=== PATIENT | female | born 1960 | race Caucasian/White ===

== ENCOUNTER 2022-01-09 17:36 | Observation (INO) | payer BC, SELFPAY ==
[2022-01-09] VITALS (27 sets, daily range): BP systolic 114–138; BP diastolic 63–76; PULSE 68–93; RESP 11–27; TEMP 36.2; O2SAT 98–100
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
--- NOTE | ~2022-01-09 | XR_ITS ---
EXAMINATION: XR small bowel follow through DATE: 01/13/2022 10:37 INDICATION: Iron deficiency anemia TECHNIQUE: Quarter Inspector radiograph(s) of the abdomen was/were obtained. Oral contrast was administered, and sequential radiographs of the abdomen were obtained until oral contrast was noted to be in the proxi mal colon. Spot fluoroscopic images of the small bowel were obtained. Fluoroscopy exposure time was m inutes. A total of 8 fluoroscopic images and 5 overhead radiographs were obtained. COMPARISON: CT dated 01/09/2022 FINDINGS: Transit time from the stomach to proximal colon was approximately 1 hour. There is normal caliber and mucosal fold pattern throughout the small bowel. Terminal ileum is unable to be definitively disting uished from the adjacent loops of small bowel, all of which appear normal. No tethering observed upo n the small bowel with real-time fluoroscopy. There is absence of contrast opacified small bowel or c olonic gas in significant portion of the pelvis which based upon CT imaging appears to reflect mass e ffect from the enlarged and fibroid uterus. IMPRESSION: 1. Normal small bowel follow-through aside from exclusion of bowel from significant portion of the pe lvis resulting from mass effect from the enlarged and fibroid uterus which is better appreciated on p rior CT. Reviewed, dictated and finalized at location A. ESSOR OF FLORICULTURE IMPRESSION: 1. Normal small bowel follow-through aside from exclusion of bowel from signifi cant portion of the pelvis resulting from mass effect from the enlarged and fib roid uterus which is better appreciated on prior CT.
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
[2022-01-09 20:59] LABS: Basophils Absolute Auto 0.1 K/mm3 (0.0-0.1); Basophils Percent Auto 0.8 % (0.2-1.2); Eosinophils Absolute Auto 0.1 K/mm3 (0-0.3); Eosinophils Percent Auto 0.6 % (0-4.4); Hematocrit 24.5 % (37.0-47.0); Immature Granulocyte Absolute 0.03 K/mm3 (0.00-0.031); Immature Granulocyte Percent A 0.3 % (0-0.5); Lymphocytes Absolute Auto 1.72 K/mm3 (0.9-3.2); Lymphocytes Percent Auto 19.7 % (18.3-44.2); Mean Corpuscular HGB Conc 26.9 g/dl (32-36); Mean Corpuscular Hemoglobin 15.6 pg (26-34); Mean Corpuscular Volume 58.1 fl (80-100); Mean Platelet Volume 8.9 fl (7.4-10.4); Monocytes Absolute Auto 0.8 K/mm3 (0.1-0.6); Monocytes Percent Auto 9.3 % (2.6-8.5); Neutrophils Absolute Auto 6.1 K/mm3 (1.3-6.7); Neutrophils Percent Auto 69.3 % (45.5-73.1); Platelet Count Result 401 k/mm3 (150-375); Red Blood Count 4.22 M/mm3 (4.2-5.4); Red Cell Distribution Width 23.9 % (11.5-14.5); White Blood Count 8.7 K/mm3 (4.5-10.0)
[2022-01-09 21:12] LABS: Alanine Aminotransferase 17 U/L (6-35); Alkaline Phosphatase 50 U/L (38-126); Anion Gap 6 mmol/L (8-16); Aspartate Amino Transferase 25 U/L (14-36); Bilirubin,Total 0.3 mg/dL (0.2-1.3); Blood Urea Nitrogen 17 mg/dL (7-17); Calcium 8.4 mg/dL (8.4-10.2); Carbon Dioxide 23 mmol/L (22-30); Chloride 106 mmol/L (98-107); Estimated CRCL calculation 62 ml/min; Estimated Glomerular Filt Rate > 60; Glucose 96 mg/dL (65-110); Potassium 3.5 mmol/L (3.4-5.0); Sodium 135 mmol/L (137-145)
[2022-01-09 21:13] LABS: INR 1.1; Prothrombin Time 13.9 Seconds (11.1-14.7)
[2022-01-09 21:14] LABS: Partial Thromboplastin Time 27.5 SECONDS (22.3-36.8)
[2022-01-09 21:15] LABS: Hemoglobin 6.6 g/dL (12.0-15.0)
[2022-01-09 21:24] LABS: Troponin I 0.012 ng/mL (0.000-0.034)
[2022-01-09 21:28] LABS: Appearance Urine Clear (Clear); Bilirubin Urine Negative (Negative); Blood Urine Trace-intact (Negative); Color Urine Yellow (Yellow); Glucose Urine UA Negative (Negative); Ketones Urine Trace mg/dL (Negative); Leukocyte Esterase Ur Negative LEU/UL (Negative); Nitrate Urine Negative (Negative); Protein Urine Negative (Negative); Specific Grav Ur 1.025 (1.001-1.035); Urobilinogen Urine 0.2 mg/dL (<2.0)
[2022-01-09 21:28] LABS: Hypochromasia 2+ (NORMAL); Platelet Estimate Increased (Adequate)
[2022-01-09 21:29] LABS: Anisocytosis 2+ (NORMAL); Schistocytes None Seen (NORMAL)
[2022-01-09 21:31] LABS: Bacteria Urine Trace /hpf; Mucus Urine Rare /lpf; Squamous Epithelial Cell Urine Occasional /hpf (Few); WBC Urine 0-3 /hpf
[2022-01-09 21:36] LABS: Add Urine Microscopic? YES
[2022-01-09 22:05] LABS: Hemoglobin 6.2 g/dL (12.0-15.0)
[2022-01-10] VITALS (34 sets, daily range): BP systolic 102–139; BP diastolic 49–79; PULSE 62–78; RESP 12–76; TEMP 36.1–36.7; O2SAT 98–100; BMI 23.3
[2022-01-10 01:36] LABS: SARS-CoV-2 RNA PCR Negative
[2022-01-10 03:21] LABS: Hematocrit 24.4 % (37.0-47.0)
[2022-01-10 03:44] LABS: Hemoglobin 6.6 g/dL (12.0-15.0)
[2022-01-10 04:40] LABS: Iron 15 ug/dL (37-170)
[2022-01-10 04:49] LABS: Percent Iron Saturation 3 % (20-50)
[2022-01-10] MEDS: MORPHINE SULFATE (*CRX) 4 MG/ML INJ IV PUSH (07:55)
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
[2022-01-10 09:34] LABS: Hematocrit 27.8 % (37.0-47.0); Hemoglobin 7.7 g/dL (12.0-15.0)
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
[2022-01-10 15:02] LABS: Hematocrit 28.3 % (37.0-47.0); Hemoglobin 7.8 g/dL (12.0-15.0)
[2022-01-10] MEDS: IRON SUCROSE COMPLEX 200 MG in SODIUM CHLORIDE 0.9% IV 50 ML 120 MG IVPB (15:06)
[2022-01-10] MEDS: HYDROcodone/acetaminophen (*CRX) 5-325 MG TABLET 1 TAB PO ×2 (15:10→21:29)
[2022-01-10 21:54] LABS: Hematocrit 28.6 % (37.0-47.0); Hemoglobin 7.8 g/dL (12.0-15.0)
[2022-01-10 22:04] LABS: Iron 282 ug/dL (37-170)
[2022-01-10 22:13] LABS: Percent Iron Saturation 67 % (20-50)
[2022-01-11] VITALS (7 sets, daily range): BP systolic 100–129; BP diastolic 53–69; PULSE 62–71; RESP 16–18; TEMP 36.4–36.6; O2SAT 99–100
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
[2022-01-11 07:56] LABS: Basophils Absolute Auto 0.1 K/mm3 (0.0-0.1); Eosinophils Absolute Auto 0.1 K/mm3 (0-0.3); Eosinophils Percent Auto 2.4 % (0-4.4); Hematocrit 29.1 % (37.0-47.0); Hemoglobin 7.7 g/dL (12.0-15.0); Immature Granulocyte Absolute 0.02 K/mm3 (0.00-0.031); Immature Granulocyte Percent A 0.3 % (0-0.5); Immature Platelet Fraction Pct 3.6 % (0.9-11.2); Lymphocytes Absolute Auto 1.59 K/mm3 (0.9-3.2); Lymphocytes Percent Auto 27.2 % (18.3-44.2); Mean Corpuscular HGB Conc 26.5 g/dl (32-36); Mean Corpuscular Volume 60.4 fl (80-100); Mean Platelet Volume 9.2 fl (7.4-10.4); Monocytes Absolute Auto 0.7 K/mm3 (0.1-0.6); Monocytes Percent Auto 11.8 % (2.6-8.5); Neutrophils Absolute Auto 3.4 K/mm3 (1.3-6.7); Neutrophils Percent Auto 57.3 % (45.5-73.1); Platelet Count Result 357 k/mm3 (150-375); Red Blood Count 4.82 M/mm3 (4.2-5.4); Red Cell Distribution Width 26.2 % (11.5-14.5); White Blood Count 5.9 K/mm3 (4.5-10.0)
[2022-01-11 08:17] LABS: Anion Gap 4 mmol/L (8-16); Blood Urea Nitrogen 8 mg/dL (7-17); Calcium 8.3 mg/dL (8.4-10.2); Carbon Dioxide 25 mmol/L (22-30); Chloride 105 mmol/L (98-107); Estimated CRCL calculation 62 ml/min; Estimated Glomerular Filt Rate > 60; Glucose 82 mg/dL (65-110); Potassium 3.6 mmol/L (3.4-5.0); Sodium 134 mmol/L (137-145)
[2022-01-11 09:14] LABS: Platelet Estimate Adequate (Adequate)
[2022-01-11 09:15] LABS: Anisocytosis 2+ (NORMAL); Microcytosis 1+ (NORMAL); Ovalocytes 2+ (NORMAL); Target Cells 1+ (NORMAL); Tear Drop Cells 1+ (NORMAL)
[2022-01-11 09:16] LABS: Crenated RBC 1+ (NORMAL); Hypochromasia 1+ (NORMAL); Schistocytes None Seen (NORMAL)
[2022-01-11] MEDS: HYDROcodone/acetaminophen (*CRX) 5-325 MG TABLET 1 TAB PO ×2 (10:48→20:49)
[2022-01-11] MEDS: MULTIVITS W-FE,MIN CHEWABLE TABLET 1 TABLET PO (10:48)
[2022-01-11] MEDS: PANTOPRAZOLE SODIUM IV 40 MG VIAL IV PUSH (10:49)
[2022-01-11] MEDS: PEG (High)/E-LYTE SOLN 4,000 ML BTL 4000 ML PO (12:36)
[2022-01-11] MEDS: ONDANSETRON INJ 4 MG/2 ML VIAL IV PUSH (12:42)
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
--- NOTE | 2022-01-11 16:34 | ECG_ITS ---
Measurements Intervals [place] Rate: 66 P: 68 PA: 174 QRS: 46 QRSD: 83 T: 61 QT: 415 QTc: 435 Interpretive Statements SINUS RHYTHM NONSPECIFIC T-WAVE ABNORMALITY BORDERLINE ECG NO PREVIOUS ECG AVAILABLE FOR COMPARISON Electronically Signed On 01-11-2022 17:43:11 REQUISITION APPROVER by Jefferson Bright M.D.
[2022-01-11 18:15] LABS: IFOB Positive Control Positive; Immunochemical Fecal Occult Bl Negative (N)
[2022-01-11] MEDS: PROMETHAZINE HCL 25 MG TABLET PO (18:46)
[2022-01-12] VITALS (9 sets, daily range): BP systolic 103–137; BP diastolic 54–81; PULSE 66–76; RESP 14–19; TEMP 36.2–36.8; O2SAT 98–100
[2022-01-12 07:10] LABS: Basophils Absolute Auto 0.1 K/mm3 (0.0-0.1); Basophils Percent Auto 1.3 % (0.2-1.2); Eosinophils Absolute Auto 0.2 K/mm3 (0-0.3); Eosinophils Percent Auto 2.8 % (0-4.4); Hematocrit 29.5 % (37.0-47.0); Hemoglobin 7.9 g/dL (12.0-15.0); Immature Granulocyte Absolute 0.01 K/mm3 (0.00-0.031); Immature Granulocyte Percent A 0.2 % (0-0.5); Immature Platelet Fraction Pct 2.7 % (0.9-11.2); Lymphocytes Absolute Auto 1.67 K/mm3 (0.9-3.2); Lymphocytes Percent Auto 31.2 % (18.3-44.2); Mean Corpuscular HGB Conc 26.8 g/dl (32-36); Mean Corpuscular Hemoglobin 16.7 pg (26-34); Mean Corpuscular Volume 62.5 fl (80-100); Mean Platelet Volume 9.5 fl (7.4-10.4); Monocytes Absolute Auto 0.7 K/mm3 (0.1-0.6); Monocytes Percent Auto 13.2 % (2.6-8.5); Neutrophils Absolute Auto 2.8 K/mm3 (1.3-6.7); Neutrophils Percent Auto 51.3 % (45.5-73.1); Platelet Count Result 388 k/mm3 (150-375); Red Blood Count 4.72 M/mm3 (4.2-5.4); Red Cell Distribution Width 26.2 % (11.5-14.5); White Blood Count 5.4 K/mm3 (4.5-10.0)
[2022-01-12 07:20] LABS: Albumin Level 3.7 g/dL (3.5-5.1); Anion Gap 5 mmol/L (8-16); Blood Urea Nitrogen 5 mg/dL (7-17); Calcium 8.1 mg/dL (8.4-10.2); Carbon Dioxide 29 mmol/L (22-30); Chloride 104 mmol/L (98-107); Estimated CRCL calculation 62 ml/min; Estimated Glomerular Filt Rate > 60; Glucose 85 mg/dL (65-110); Magnesium 2.2 mg/dL (1.6-2.3); Phosphorus 2.5 mg/dL (2.5-4.5); Potassium 3.2 mmol/L (3.4-5.0); Sodium 138 mmol/L (137-145)
[2022-01-12] MEDS: PANTOPRAZOLE SODIUM IV 40 MG VIAL IV PUSH (08:41)
[2022-01-12 09:10] LABS: Anisocytosis 1+ (NORMAL); Hypochromasia 3+ (NORMAL); Ovalocytes 1+ (NORMAL); Poikilocytosis 2+ (NORMAL)
[2022-01-12 09:11] LABS: Schistocytes 1+ (NORMAL); Target Cells 1+ (NORMAL)
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
[2022-01-12] MEDS: LACTATED RINGERS 1,000 ML 150 ML IV CONT (14:34)
--- NOTE | 2022-01-12 14:51 | WPDANESEPPF ---
Anes - Initial Pre Proc Eval Procedure: Operation Date: 01/12/22 15:30 Proposed Procedures p Esophagogastroduodenoscopy & Colonoscopy - Naresh Zhao MD Date/Time: 01/12/22 14:51 Surgeon: Adali Mckinney MD Pre Op Diagnosis: Anemia Patient Data Age: 61 Gender: F Height: 1.6 m Weight: 59.8 kg Last Vital Signs Temp 97.4 F L 01/12/22 14:29 Pulse 72 01/12/22 14:29 Resp 18 01/12/22 14:29 BP 137/81 01/12/22 14:29 Pulse Ox 100 01/12/22 14:29 O2 Del Method Room Air 01/12/22 14:29 Allergies Allergy/AdvReac Type Severity Reaction Status Date / Time No Known Allergies Allergy Verified 01/10/22 08:35 Home Medications Medication Instructions Recorded Confirmed Type multivitamin 1 tablet PO DAILY 01/10/22 01/10/22 History Laboratory Tests 01/11/22 01/12/22 01/12/22 17:05 06:21 06:21 WBC 5.4 K/mm3 K/mm3 (4.5-10.0) RBC 4.72 M/mm3 M/mm3 (4.2-5.4) Hgb 7.9 g/dL L g/dL (12.0-15.0) Hct 29.5 % L % (37.0-47.0) MCV 62.5 fl L fl (80-100) MCH 16.7 pg L pg (26-34) MCHC 26.8 g/dl L g/dl (32-36) RDW 26.2 % H % (11.5-14.5) Plt Count 388 k/mm3 H k/mm3 (150-375) MPV 9.5 fl fl (7.4-10.4) Immature Gran % (Auto) 0.2 % % (0-0.5) Neut % (Auto) 51.3 % % (45.5-73.1) Lymph % (Auto) 31.2 % % (18.3-44.2) Mclennan % (Auto) 13.2 % H % (2.6-8.5) Eos % (Auto) 2.8 % % (0-4.4) Baso % (Auto) 1.3 % H % (0.2-1.2) Lymph # (Auto) 1.67 K/mm3 K/mm3 (0.9-3.2) Mclennan # (Auto) 0.7 K/mm3 H K/mm3 (0.1-0.6) Eos # (Auto) 0.2 K/mm3 K/mm3 (0-0.3) Baso # (Auto) 0.1 K/mm3 K/mm3 (0.0-0.1) Abs Immat Gran (auto) 0.01 K/mm3 K/mm3 (0.00-0.031) Absolute Neuts (auto) 2.8 K/mm3 K/mm3 (1.3-6.7) Absolute Nucleated RBC 0.0 K/mm3 K/mm3 (0.0-0.012) Nucleated RBC % 0.0 % % (0.0-0.2) Platelet Estimate Slightly increased (Adequate) % Immature Plt Fraction 2.7 % % (0.9-11.2) Hypochromasia 3+ (NORMAL) Poikilocytosis 2+ (NORMAL) Anisocytosis 1+ (NORMAL) Target Cells 1+ (NORMAL) Ovalocytes 1+ (NORMAL) Schistocytes 1+ (NORMAL) Sodium 138 mmol/L mmol/L (137-145) Potassium 3.2 mmol/L L mmol/L (3.4-5.0) Chloride 104 mmol/L mmol/L (98-107) Carbon Dioxide 29 mmol/L mmol/L (22-30) Anion Gap 5 mmol/L L mmol/L (8-16) BUN 5 mg/dL L mg/dL (7-17) Creatinine 0.70 mg/dL mg/dL (0.7-1.0) Estim Creat Clear Calc 62 ml/min ml/min Estimated GFR > 60 (59 - ) Glucose 85 mg/dL mg/dL (65-110) Calcium 8.1 mg/dL L mg/dL (8.4-10.2) Phosphorus 2.5 mg/dL mg/dL (2.5-4.5) Magnesium 2.2 mg/dL mg/dL (1.6-2.3) Albumin 3.7 g/dL g/dL (3.5-5.1) TSH (Reflex) Stl Occult Blood (IFOB) Negative (N) 01/12/22 06:21 WBC RBC Hgb Hct MCV MCH MCHC RDW Plt Count MPV Immature Gran % (Auto) Neut % (Auto) Lymph % (Auto) Mclennan % (Auto) Eos % (Auto) Baso % (Auto) Lymph # (Auto) Mclennan # (Auto) Eos # (Auto) Baso # (Auto) Abs Immat Gran (auto) Absolute Neuts (auto) Absolute Nucleated RBC Nucleated RBC % Platelet Estimate % Immature Plt Fraction Hypochromasia Poikilocytosis Anisocytosis Target Cells Ovalocytes Schistocytes Sodium Potassium Chloride Carbon Dioxide Anion Gap BUN Creatinine Estim Creat Clear Calc Estimated GFR Glucose Calcium Phosphorus
--- NOTE | 2022-01-12 15:58 | SUR.OPER ---
EGD completed at 1553, colonoscopy started at 1559
[2022-01-12] MEDS: HYDROcodone/acetaminophen (*CRX) 5-325 MG TABLET 1 TAB PO (17:04)
[2022-01-12] MEDS: FERROUS SULFATE 324 MG TABLET PO (17:08)
--- NOTE | 2022-01-13 | ECHO_ITS ---
Patient Info Name: Mikaela Romo Age: 61 years : 1960 Gender: Female Ht: 63 in Wt: 131 lbs BSA: 1.63 m2 HR: 76 bpm BP: 124 / 64 mmHg Heart Rhythm: Sinus Rhythm Technical Quality: Good Exam Date: 01/13/2022 1:11 PM Exam Location: [facility] Pulmonary Exam Room: 306 Patient Status: Inpatient Admit Date: 01/10/2022 Staff Ordering Physician: Rojas García MD Slitter Cut Off Operator: Yanci Diop RDCS Attending Provider: Adali Mckinney MD Exam Type: CA echo doppler color flow Study Info Indications - CARDIAC PAUSE Complete two-dimensional, color flow and Doppler transthoracic echocardiogram is performed. Summary 1. Complete two-dimensional, color flow and Doppler transthoracic echocardiogram is performed. 2. Normal left ventricular size thickness and contractility. 3. Grade 1 diastolic noncompliance. 4. Otherwise unremarkable echocardiogram. 5. Compared with August of 2020 there are no changes. Left Ventricle Left ventricular chamber dimension is normal. Left ventricular systolic function is normal, estimated at 65-70%. The left ventricular diastolic function is grade I diastolic dysfunction. Right Ventricle Right ventricular chamber dimension is normal. Left Atria Left atrial chamber dimension is normal. Right Atria Right atrial chamber dimension is normal. Aortic Valve The aortic valve is normal. Pulmonic Valve The pulmonic valve is normal. Mitral Valve The mitral valve has normal leaflets. Tricuspid Valve The tricuspid valve leaflets are normal. Pericardium/Pleural The pericardium appears normal. Aorta The aortic root size at the sinus of Valsalva is normal. Left Ventricular Outflow Tract Name Value Normal LVOT 2D LVOT Diameter 2.0 cm LVOT Doppler LVOT Peak Gradient 4 mmHg LVOT Mean Gradient 2 mmHg LVOT VTI 19 cm LVOT VTI/AV VTI Ratio 0.9 LVOT Stroke Volume 59 ml LVOT CO 12.7 l/min LVOT CI 7.8 l/min/m2 Pulmonic Valve Name Value Normal PV Doppler PV Peak Gradient 3 mmHg Mitral Valve Name Value Normal MV Doppler MV Decel Karnes 225 cm/s2 MV PHT 85 ms MV Area (PHT) 2.6 cm2 4.0-5.0 MV Diastolic Function MV E Peak Velocity 66 cm/s
[2022-01-13 06:29] VITALS: BP 124/64; PULSE 68; RESP 16; TEMP 37.1; O2SAT 100
[2022-01-13 07:20] LABS: Hematocrit 30.7 % (37.0-47.0); Hemoglobin 8.3 g/dL (12.0-15.0); Immature Platelet Fraction Pct 3.4 % (0.9-11.2); Mean Corpuscular Volume 62.8 fl (80-100); Mean Platelet Volume 8.8 fl (7.4-10.4); Platelet Count Result 379 k/mm3 (150-375); Red Blood Count 4.89 M/mm3 (4.2-5.4); Red Cell Distribution Width 27.2 % (11.5-14.5)
[2022-01-13 07:26] LABS: Anion Gap 3 mmol/L (8-16); Blood Urea Nitrogen 7 mg/dL (7-17); Carbon Dioxide 28 mmol/L (22-30); Chloride 105 mmol/L (98-107); Estimated CRCL calculation 71 ml/min; Estimated Glomerular Filt Rate > 60; Glucose 89 mg/dL (65-110); Potassium 3.7 mmol/L (3.4-5.0); Sodium 136 mmol/L (137-145)
--- NOTE | 2022-01-13 07:59 | WPDGIPROGNO ---
Progress Note: A&P Assessment and Plan (1) VARSHA (iron deficiency anemia): Code(s): D50.9 - Iron deficiency anemia, unspecified Status: Acute Assessment and Plan: Iron deficiency anemia noted on presentation. She EGD unremarkable colonoscopy with hemorrhoid unlikely to contribute to anemia. Consider small-bowel follow-through to complete GI workup. This can be done as an outpatient. Consider non GI sources for anemia such as menstrual bleeding from her fibroids. Subjective Date/time seen: 01/13/22 07:59 Patient alert comfortable. No obvious source for iron deficiency anemia by endoscopy yesterday. Patient's stools have been Hemoccult negative. Consider small-bowel follow-through to complete GI evaluation. Review of Systems Review of Systems: Review of systems noncontributory. Exam Narrative: On physical exam patient is alert comfortable at rest anicteric. Lungs are clear. Heart without murmur. Abdomen bowel sounds present soft nontender no organomegaly. Objective Data Vital Signs Vital Signs: Vital Signs - 24 hr 01/12/22 08:00 01/12/22 13:46 01/12/22 14:29 Temperature 97.2 F L 97.4 F L Pulse Rate 66 72 Respiratory Rate 18 18 Blood Pressure 121/61 137/81 Pulse Oximetry 100 100 Oxygen Delivery Room Air Room Air 01/12/22 16:14 01/12/22 16:24 01/12/22 16:34 Temperature Pulse Rate 69 75 76 Respiratory Rate 16 14 19 Blood Pressure 103/54 L 113/66 125/67 Pulse Oximetry 100 100 100 Oxygen Delivery Room Air Room Air Room Air 01/12/22 08:00 01/12/22 12:00 01/12/22 22:29 Temperature 97.5 F L Pulse Rate 69 70 70 Respiratory Rate 16 Blood Pressure 106/62 Pulse Oximetry 99 Oxygen Delivery 01/13/22 06:29 Temperature 98.7 F Pulse Rate 68 Respiratory Rate 16 Blood Pressure 124/64 Pulse Oximetry 100 Oxygen Delivery Intake/Output Intake/Output: Intake & Output 01/10/22 01/11/22 01/12/22 01/13/22 23:59 23:59 23:59 23:59 Intake Total 510 300 300 Output Total 450 500 Balance 60 -200 300 Meds/Results Medications: Active Medications Generic Name Dose Route Start Last Admin Trade Name Freq PRN Reason Stop Dose Admin Hydrocodone Bitart/Acetaminophen 1 tab 12/06/22 14:52 01/12/22 17:04 Hydrocodone/Acetaminophen (*Crx) 5-325 Mg Tablet PO 1 tab Q4H PRN Administration Pain Rated 4-6 Ferrous Sulfate 324 mg 01/12/22 17:00 01/12/22 17:08 Ferrous Sulfate 324 Mg Tablet PO 324 mg BIDWM JUAN R Administration Multivitamins/Minerals 1 tablet 01/11/22 09:00 01/12/22 11:48 Multivits W-Fe,Min Chewable Tablet PO Not Given DAILY JUAN R Perflutren Lipid Microsphere 0 ml 01/11/22 16:34 Perflutren Lipid Microspheres 1.5 Ml Vial Diluted To 10 Ml Total Volume IV PUSH 01/13/22 16:34 ONCE PRN adequate visualization Protocol Promethazine HCl 25 mg 01/11/22 16:40 01/11/22 18:46 Promethazine Hcl 25 Mg Tablet PO 25 mg Q4H PRN Administration Nausea And Vomiting Radiology Results: ITS Impressions Tibia/Fibula X-Ray 01/09/22 20:48 IMPRESSION: No acute osseous finding in the right tibia/fibula. Wrist X-Ray 01/09/22 20:48 IMPRESSION: No acute osseous finding in the left wrist. Cervical Spine CT 01/09/22 21:43 IMPRESSION: No acute fracture or traumatic malalignment in the cervical spine Chest/Abdomen/Pelvis CT 01/09/22 21:59 IMPRESSION: 1. Very mild anterior wedge deformity at L2, may represent a mild anterior wedge compression fracture if accompanied by acute pain/tenderness, or simply may represent old injury or physiologic wedging. 2. 1.8 cm rounded low density lesion in the anterior uterine wall near the fundus, which may represent a uterine fibroid although a parenchymal contusion could theoretically appear similar. If there is lower abdominal pain/tenderness consider pelvic ultrasound for further evaluation. 3. Fat-containing, mildly inflamed/contused lowe
[2022-01-13 08:00] VITALS: PULSE 74
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
[2022-01-13] MEDS: MULTIVITS W-FE,MIN CHEWABLE TABLET 1 TABLET PO (10:51)
[2022-01-13] MEDS: FERROUS SULFATE 324 MG TABLET PO (10:51)
[2022-01-13] MEDS: HYDROcodone/acetaminophen (*CRX) 5-325 MG TABLET 1 TAB PO (10:52)
[2022-01-13 12:00] VITALS: PULSE 77
[2022-01-13 14:00] VITALS: BP 96/55; PULSE 73; RESP 14; TEMP 36.5; O2SAT 100
[2022-01-13 16:00] VITALS: PULSE 85
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
[2022-01-14 05:25] LABS: Red Blood Cell Folate 790 ng/mL RBC (>280)
== END 2022-01-13 18:52 | disposition home or self-care (01) ==
LOC: ANHED 01-10 02:56 → ANH3MEDSUR 01-10 10:42
PROVIDERS: Internal Medicine Gastroenterology; Admitting Provider Chiropractor; Emergency Provider Emergency Medicine; Visit Provider Internal Medicine
PROC: 0DJ08ZZ Inspection of Upper Intestinal Tract, Via Natural or Artificial Opening Endoscopic (ICD-10-PCS; CPT 43235; principal; 2022-01-12 15:30)
DX: D50.9 Iron deficiency anemia, unspecified (principal); K22.2 Esophageal obstruction; K64.8 Other hemorrhoids; V89.2XXA Person injured in unspecified motor-vehicle accident, traffic, initial encounter; R11.2 Nausea with vomiting, unspecified; I45.5 Other specified heart block; Q85.00 Neurofibromatosis, unspecified; Z20.822 Contact with and (suspected) exposure to COVID-19; R91.8 Other nonspecific abnormal finding of lung field; R94.31 Abnormal electrocardiogram [ECG] [EKG]; R53.83 Other fatigue; M48.56XA Collapsed vertebra, not elsewhere classified, lumbar region, initial encounter for fracture; D25.9 Leiomyoma of uterus, unspecified; K43.9 Ventral hernia without obstruction or gangrene; M54.2 Cervicalgia; M54.9 Dorsalgia, unspecified; M25.531 Pain in right wrist; M79.604 Pain in right leg; Z87.891 Personal history of nicotine dependence; Z79.899 Other long term (current) drug therapy
CPT/HCPCS: 43450; 45378; 36415; 36430; 70450; 71260; 72125; 73110; 73590; 74177; 74250; 76856; 76857; 80048; 80053; 80069; 81001; 82274; 82607; 82728; 82747; 83540; 83550; 83735; 84443; 84484; 85014; 85018; 85025; 85027; 85055; 85610; 85730; 86850; 86900; 86901; 86923; 93005; 93306; 96365; 96375; 96376; 99285; A9270; C9113; G0378; J1756; J2001; J2270; J2405; J2704; J7120; P9016; Q9967; U0003; U0005

== ENCOUNTER 2022-02-15 15:14 | Outpatient (CLI) | payer BC, SELFPAY ==
[2022-02-15 18:53] LABS: Hematocrit 40.1 % (37.0-47.0); Hemoglobin 11.8 g/dL (12.0-15.0); Immature Platelet Fraction Pct 15.9 % (0.9-11.2); Mean Corpuscular HGB Conc 29.4 g/dl (32-36); Mean Corpuscular Hemoglobin 22.1 pg (26-34); Mean Corpuscular Volume 75.2 fl (80-100); Red Blood Count 5.33 M/mm3 (4.2-5.4); White Blood Count 9.6 K/mm3 (4.5-10.0)
== END 2022-02-15 15:15 | disposition home or self-care (01) ==
LOC: ANHGOSHLAB 15:15
PROVIDERS: PCP Family Medicine; Visit Provider Internal Medicine
DX: D50.9 Iron deficiency anemia, unspecified (principal)
CPT/HCPCS: 36415; 85027; 85055

== ENCOUNTER 2022-08-15 21:15 | Observation (INO) | payer BC, SELFPAY ==
--- NOTE | ~2022-08-15 | CT_ITS ---
EXAMINATION: CT abdomen pelvis w con DATE: 08/16/2022 02:30 INDICATION: Hematemesis. Nausea. TECHNIQUE: Computed tomography (CT) of the abdomen and pelvis was performed with 100 mL Omnipaque 350 intravenous contrast. Automated exposure control and iterative reconstruction technique were employe d. The dose-length product was 432.15 mGy-cm. COMPARISON: CT abdomen and pelvis 01/09/2022 FINDINGS: The visualized portions of the lung bases demonstrate mild atelectasis. No pleural effusion . The heart size is normal. No pericardial effusion. The liver and spleen are normal. There is a gall stone in the gallbladder, which is normal in size. The pancreas, adrenal glands, and kidneys are norm al. There is an 18 mm uterine fibroid. There is a left inguinal hernia containing fat. There are no d ilated loops of bowel. The appendix is normal. There is mild aortic atherosclerosis. There is a right -sided infraumbilical ventral hernia containing fat. Chronic fat stranding in the hernia may be scarr ing. There are no pathologically enlarged lymph nodes. There is no free intraperitoneal fluid. There are multiple skin masses, consistent with neurofibromatosis. The bladder is distended. There is mild lumbar spondylosis. There is mild chronic anterior wedging of T12-L2 vertebral bodies. IMPRESSION: 1. No specific etiology for hematemesis. 2. Right-sided infraumbilical ventral hernia containing fat. 3. Left inguinal hernia containing fat. Reviewed, dictated and finalized at location E.
[2022-08-15 21:27] VITALS: BP 94/66; PULSE 94; RESP 16; TEMP 36.1; O2SAT 99
[2022-08-15 21:55] LABS: Basophils Absolute Auto 0.1 K/mm3 (0.0-0.1); Basophils Percent Auto 0.6 % (0.2-1.2); Eosinophils Absolute Auto 0.1 K/mm3 (0-0.3); Eosinophils Percent Auto 1.2 % (0-4.4); Hematocrit 38.9 % (37.0-47.0); Hemoglobin 12.8 g/dL (12.0-15.0); Immature Granulocyte Absolute 0.03 K/mm3 (0.00-0.031); Immature Granulocyte Percent A 0.3 % (0-0.5); Lymphocytes Percent Auto 18.8 % (18.3-44.2); Mean Corpuscular HGB Conc 32.9 g/dl (32-36); Mean Corpuscular Hemoglobin 29.8 pg (26-34); Mean Corpuscular Volume 90.7 fl (80-100); Mean Platelet Volume 10.2 fl (7.4-10.4); Monocytes Absolute Auto 0.9 K/mm3 (0.1-0.6); Monocytes Percent Auto 8.4 % (2.6-8.5); Neutrophils Absolute Auto 7.1 K/mm3 (1.3-6.7); Neutrophils Percent Auto 70.7 % (45.5-73.1); Platelet Count Result 295 k/mm3 (150-375); Red Blood Count 4.29 M/mm3 (4.2-5.4); Red Cell Distribution Width 12.5 % (11.5-14.5); White Blood Count 10.1 K/mm3 (4.5-10.0)
[2022-08-15 22:07] LABS: Alanine Aminotransferase 28 U/L (6-35); Alkaline Phosphatase 54 U/L (38-126); Anion Gap 4 mmol/L (8-16); Aspartate Amino Transferase 25 U/L (14-36); Bilirubin,Total 0.4 mg/dL (0.2-1.3); Blood Urea Nitrogen 43 mg/dL (7-17); Calcium 9.3 mg/dL (8.4-10.2); Carbon Dioxide 30 mmol/L (22-30); Chloride 102 mmol/L (98-107); Estimated CRCL calculation 62 ml/min; Estimated Glomerular Filt Rate > 60; Glucose 108 mg/dL (65-110); Lipase 48 U/L (23-300); Potassium 4.1 mmol/L (3.4-5.0); Sodium 136 mmol/L (137-145)
[2022-08-16] VITALS (9 sets, daily range): BP systolic 90–147; BP diastolic 46–97; PULSE 60–100; RESP 13–19; TEMP 36.6–36.8; O2SAT 97–100; BMI 27.9
[2022-08-16 00:14] LABS: Appearance Urine Clear (Clear); Bacteria Urine None Seen /hpf; Bilirubin Urine Negative (Negative); Blood Urine Negative (Negative); Color Urine Yellow (Yellow); Glucose Urine UA Negative (Negative); Ketones Urine Negative (Negative); Leukocyte Esterase Ur Trace LEU/UL (Negative); Nitrate Urine Negative (Negative); Non Pathogenic Casts 0-2; Protein Urine Negative (Negative); RBC Urine 0-2 /hpf (0-2); Specific Grav Ur 1.022 (1.001-1.035); Squamous Epithelial Cell Urine Occasional /hpf (Few); Urobilinogen Urine 0.2 mg/dL (<2.0); WBC Urine 0-5 /hpf
[2022-08-16 00:15] LABS: Add Urine Microscopic? YES
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
--- NOTE | 2022-08-16 00:55 | PC.NURSE ---
attempted to insert pt. NG tube for gastric lavage. pt. ripped out NG tube and is refusing NG insertion. ERP made aware.
[2022-08-16] MEDS: SODIUM CHLORIDE 0.9% IV 1,000 ML 999 ML IV CONT (01:14)
[2022-08-16 04:03] LABS: Hematocrit 34.6 % (37.0-47.0); Hemoglobin 11.5 g/dL (12.0-15.0)
[2022-08-16] MEDS: PANTOPRAZOLE SODIUM IV 40 MG VIAL 80 MG IV PUSH (04:43)
[2022-08-16] MEDS: ONDANSETRON INJ 4 MG/2 ML VIAL IV PUSH ×2 (04:50→19:43)
[2022-08-16 06:17] LABS: Hematocrit 33.7 % (37.0-47.0); Hemoglobin 11.3 g/dL (12.0-15.0)
--- NOTE | 2022-08-16 07:16 | ADMGEN ---
This patient, Jesusita Romo, was admitted to [facility] Surg Room 331-01. Patient/family oriented to hospital policies and general routines including ID bracelet, bed and alarms, visiting hours, pain management, procedures, bathroom and other care routines, personal items, smoking policy, room service/diet, and visiting hours. Information on how to activate the Rapid Response Team has been discussed. Patient/Family are encouraged to report perceived risks to care and to ask questions if they do not understand what they are told or what they should do.
[2022-08-16 10:59] LABS: Hematocrit 34.4 % (37.0-47.0); Hemoglobin 11.1 g/dL (12.0-15.0)
[2022-08-16 11:19] LABS: Iron 140 ug/dL (37-170)
[2022-08-16 11:29] LABS: Percent Iron Saturation 49 % (20-50)
[2022-08-16 12:14] LABS: Folic Acid 8.4 ng/mL (2.76->20)
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
[2022-08-16] MEDS: LACTATED RINGERS 1,000 ML 150 ML IV CONT (13:50)
--- NOTE | 2022-08-16 14:15 | WPDANESEPPF ---
Anes - Initial Pre Proc Eval Procedure: Operation Date: 08/16/22 14:15 Proposed Procedures p Esophagogastroduodenoscopy - Wilfred Miles MD Date/Time: 08/16/22 14:15 Surgeon: Adali Mckinney MD Pre Op Diagnosis: ugib,hematemesis,anemia Patient Data Age: 61 Gender: F Height: 1.6 m Weight: 71.5 kg Last Vital Signs Temp 98.2 F 08/16/22 13:45 Pulse 71 08/16/22 13:45 Resp 16 08/16/22 13:45 BP 102/61 08/16/22 13:45 Pulse Ox 100 08/16/22 13:45 O2 Del Method Room Air 08/16/22 13:45 Allergies Allergy/AdvReac Type Severity Reaction Status Date / Time No Known Allergies Allergy Verified 08/16/22 13:41 Home Medications Medication Instructions Recorded Confirmed Type multivitamin 1 tablet PO DAILY 01/10/22 08/16/22 History acetaminophen 500 mg capsule 500 mg PO Q6H PRN Pain 02/15/22 08/16/22 History cyclobenzaprine 10 mg tablet 10 mg PO TID PRN muscle spasm #90 07/26/22 08/16/22 Rx tabs meloxicam 7.5 mg tablet 7.5 mg PO QAM #90 tabs 07/26/22 08/16/22 Rx ferrous sulfate 220 mg (44 mg See Rx Instructions .Route .COMPLEX 08/16/22 08/16/22 History iron)/5 mL oral elixir Laboratory Tests 08/15/22 08/15/22 08/16/22 21:35 23:56 01:14 WBC 10.1 H K/mm3 (4.5-10.0) RBC 4.29 M/mm3 (4.2-5.4) Hgb 12.8 g/dL (12.0-15.0) Hct 38.9 % (37.0-47.0) MCV 90.7 fl (80-100) MCH 29.8 pg (26-34) MCHC 32.9 g/dl (32-36) RDW 12.5 % (11.5-14.5) Plt Count 295 k/mm3 (150-375) MPV 10.2 fl (7.4-10.4) Immature Gran % (Auto) 0.3 % (0-0.5) Neut % (Auto) 70.7 % (45.5-73.1) Lymph % (Auto) 18.8 % (18.3-44.2) Keith % (Auto) 8.4 % (2.6-8.5) Eos % (Auto) 1.2 % (0-4.4) Baso % (Auto) 0.6 % (0.2-1.2) Lymph # (Auto) 1.90 K/mm3 (0.9-3.2) Keith # (Auto) 0.9 H K/mm3 (0.1-0.6) Eos # (Auto) 0.1 K/mm3 (0-0.3) Baso # (Auto) 0.1 K/mm3 (0.0-0.1) Abs Immat Gran (auto) 0.03 K/mm3 (0.00-0.031) Absolute Neuts (auto) 7.1 H K/mm3 (1.3-6.7) Absolute Nucleated RBC 0.0 K/mm3 (0.0-0.012) Nucleated RBC % 0.0 % (0.0-0.2) Sodium 136 L mmol/L (137-145) Potassium 4.1 mmol/L (3.4-5.0) Chloride 102 mmol/L (98-107) Carbon Dioxide 30 mmol/L (22-30) Anion Gap 4 L mmol/L (8-16) BUN 43 H D mg/dL (7-17) Creatinine 0.80 mg/dL (0.7-1.0) Estim Creat Clear Calc 62 ml/min Estimated GFR > 60 (59 - ) Glucose 108 mg/dL (65-110) Calcium 9.3 mg/dL (8.4-10.2) Iron TIBC % Saturation Ferritin Total Bilirubin 0.4 mg/dL (0.2-1.3) AST 25 U/L (14-36) ALT 28 U/L (6-35) Alkaline Phosphatase 54 U/L (38-126) Total Protein 7.0 g/dL (6.3-8.2) Albumin 4.0 g/dL (3.5-5.1) Lipase 48 U/L (23-300) Vitamin B12 Folate Urine Color Yellow (Yellow) Urine Appearance Clear (Clear) Urine pH 5.0 (5.0-9.0) Ur Specific [place] 1.022 (1.001-1.035) Urine Protein Negative mg/dL (Negative) Urine Glucose (UA) Negative mg/dL (Negative) Urine Ketones Negative mg/dL (Negative) Ur Blood (Man) Negative (Negative) Urine Nitrate Negative (Negative) Urine Bilirubin Negative (Negative) Urine Urobilinogen 0.2 mg/dL (<2.0) Leukocyte Esterase Rfl Trace H OG/UL (Negative) Urine RBC 0-2 /hpf (0-2) Urine WBC 0-5 /hpf Ur Squamous Epith Cells Occasional /hpf (Few) Urine Bacteria None seen /hpf Urine Casts 0-2 Blood Type
[2022-08-16] MEDS: BENZOCAINE (*SP) 60 ML SPRAY CAN (HURRICAINE) 1 SPRAY MUCOUS MEM (14:33)
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
[2022-08-16] MEDS: ACETAMINOPHEN 500 MG TABLET PO (16:31)
[2022-08-16 16:50] LABS: Hematocrit 34.8 % (37.0-47.0); Hemoglobin 11.3 g/dL (12.0-15.0)
[2022-08-16 22:29] LABS: Hematocrit 34.2 % (37.0-47.0); Hemoglobin 11.2 g/dL (12.0-15.0)
[2022-08-17 04:51] VITALS: BP 106/73; PULSE 72; RESP 16; TEMP 36.4; O2SAT 99
[2022-08-17 06:37] LABS: Basophils Percent Auto 0.7 % (0.2-1.2); Eosinophils Absolute Auto 0.1 K/mm3 (0-0.3); Eosinophils Percent Auto 1.8 % (0-4.4); Hematocrit 33.9 % (37.0-47.0); Hemoglobin 10.9 g/dL (12.0-15.0); Immature Granulocyte Absolute 0.02 K/mm3 (0.00-0.031); Immature Granulocyte Percent A 0.3 % (0-0.5); Lymphocytes Absolute Auto 2.11 K/mm3 (0.9-3.2); Mean Corpuscular HGB Conc 32.2 g/dl (32-36); Mean Corpuscular Hemoglobin 29.5 pg (26-34); Mean Corpuscular Volume 91.6 fl (80-100); Mean Platelet Volume 10.8 fl (7.4-10.4); Monocytes Absolute Auto 0.6 K/mm3 (0.1-0.6); Neutrophils Absolute Auto 3.2 K/mm3 (1.3-6.7); Neutrophils Percent Auto 52.2 % (45.5-73.1); Platelet Count Result 230 k/mm3 (150-375); Red Cell Distribution Width 12.4 % (11.5-14.5)
[2022-08-17] MEDS: MULTIVITS W-FE,MIN CHEWABLE TABLET 1 TABLET PO (08:24)
[2022-08-17] MEDS: FERROUS SULFATE LIQUID 325 MG/7.4 ML ELIXIR BY MOUTH (08:24)
[2022-08-17] MEDS: PANTOPRAZOLE 40 MG TABLET PO (08:24)
[2022-08-17] MEDS: ACETAMINOPHEN 500 MG TABLET PO (08:30)
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
--- NOTE | 2022-08-17 15:03 | WPDGIPROGNO ---
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 - Neurofibromatosis, unspecified Status: Acute Subjective Date/time seen: 08/17/22 14:00 Interval history: egd yesterday with only mild gastritis, no signs of bleeding feeling better will be discharged home Review of Systems Review of Systems: All systems reviewed & are unremarkable except as noted in HPI and below Exam Const: General: comfortable and no acute distress HENMT: Face/Nose/Sinus: Normal nares present Eyes: General: appearance normal, both eyes and all related structures Neck: Neck: supple Resp: Auscultation: clear to auscultation bilaterally Cardio: Rate: regular rate Rhythm: regular rhythm GI: Inspection: non-distended GI Palp: Yes Soft to palpation and No Tenderness to palpation present (GI) Auscultation: normal bowel sounds Skin: Other: neurofibromatosis Neuro: General: gait normal Speech: normal speech Extrem: General: normal to inspection Psych: Mental Status: mental status grossly normal Objective Data Vital Signs Vital Signs: Vital Signs - 24 hr 08/16/22 21:10 08/17/22 04:51 Temperature 97.8 F 97.6 F Pulse Rate 74 72 Respiratory Rate 16 16 Blood Pressure 107/62 106/73 Pulse Oximetry 98 99 Intake/Output Intake/Output: Intake & Output 08/14/22 08/15/22 08/16/22 08/17/22 23:59 23:59 23:59 23:59 Intake Total 1780 480 Balance 1780 480 Meds/Results Radiology Results: ITS Impressions Abdomen/Pelvis CT 08/16/22 03:27 IMPRESSION: 1. No specific etiology for hematemesis. 2. Right-sided infraumbilical ventral hernia containing fat. 3. Left inguinal hernia containing fat. Labs Labs: Laboratory Results - last 24 hr 08/16/22 08/16/22 08/17/22 16:42 22:22 05:44 WBC 6.0 RBC 3.70 L Hgb 11.3 L 11.2 L 10.9 L Hct 34.8 L 34.2 L 33.9 L MCV 91.6 MCH 29.5 MCHC 32.2 RDW 12.4 Plt Count 230 MPV 10.8 H Immature Gran % (Auto) 0.3 Neut % (Auto) 52.2 Lymph % (Auto) 35.0 Stephenson % (Auto) 10.0 H Eos % (Auto) 1.8 Baso % (Auto) 0.7 Lymph # (Auto) 2.11 Stephenson # (Auto) 0.6 Eos # (Auto) 0.1 Baso # (Auto) 0.0 Abs Immat Gran (auto) 0.02 Absolute Neuts (auto) 3.2 Absolute Nucleated RBC 0.0 Nucleated RBC % 0.0 Magnesium 2.0 Amg Follow-up Billing Hospital Follow-up Hospital Follow-up: [id number] [facility]
== END 2022-08-17 14:40 | disposition home or self-care (01) ==
LOC: ANHED 08-16 04:44 → ANH3MEDSUR 08-16 10:49
PROVIDERS: Emergency Medicine; Internal Medicine Gastroenterology; Admitting Provider Family Medicine; Emergency Provider Physician Assistant; PCP Family Medicine; Visit Provider Family Medicine
PROC: 0DJ08ZZ Inspection of Upper Intestinal Tract, Via Natural or Artificial Opening Endoscopic (ICD-10-PCS; CPT 43235; principal; 2022-08-16 14:15)
DX: K44.9 Diaphragmatic hernia without obstruction or gangrene (principal); K29.50 Unspecified chronic gastritis without bleeding; K92.0 Hematemesis; R52 Pain, unspecified; R63.0 Anorexia; Z68.27 Body mass index [BMI] 27.0-27.9, adult; R42 Dizziness and giddiness; D64.9 Anemia, unspecified; G43.909 Migraine, unspecified, not intractable, without status migrainosus; Q85.00 Neurofibromatosis, unspecified; R91.1 Solitary pulmonary nodule; D50.9 Iron deficiency anemia, unspecified; F41.9 Anxiety disorder, unspecified; K43.9 Ventral hernia without obstruction or gangrene; K40.90 Unilateral inguinal hernia, without obstruction or gangrene, not specified as recurrent; Z87.891 Personal history of nicotine dependence; Z79.1 Long term (current) use of non-steroidal anti-inflammatories (NSAID); Z79.899 Other long term (current) drug therapy
CPT/HCPCS: 43239; 36415; 74177; 80053; 81001; 81025; 82607; 82728; 82746; 83540; 83550; 83690; 83735; 85014; 85018; 85025; 86850; 86900; 86901; 88305; 88342; 96361; 96374; 96375; 96376; 99285; A9270; C9113; G0378; J2405; J2704; J7030; J7120; Q9967

== ENCOUNTER 2022-08-18 11:03 | Emergency (ER) | payer BC, SELFPAY ==
[2022-08-18] VITALS (29 sets, daily range): BP systolic 81–133; BP diastolic 50–88; PULSE 78–108; RESP 12–20; TEMP 36.3–36.6; O2SAT 97–100
--- NOTE | 2022-08-18 11:06 | ECG_ITS ---
Measurements Intervals [place] Rate: 89 P: 61 [place]: 143 QRS: 56 QRSD: 73 T: 69 QT: 345 QTc: 421 Interpretive Statements SINUS RHYTHM BASELINE ARTIFACT- I, III, AVR, AVL, AVF NORMAL ECG COMPARED TO ECG 01/11/2022 17:08:10 NO SIGNIFICANT CHANGES Electronically Signed On 08-18-2022 11:14:25 CDT by Tashi White D.O.
[2022-08-18 12:06] LABS: Basophils Absolute Auto 0.1 K/mm3 (0.0-0.1); Basophils Percent Auto 0.6 % (0.2-1.2); Eosinophils Percent Auto 0.3 % (0-4.4); Hematocrit 30.9 % (37.0-47.0); Hemoglobin 10.1 g/dL (12.0-15.0); Immature Granulocyte Absolute 0.03 K/mm3 (0.00-0.031); Immature Granulocyte Percent A 0.3 % (0-0.5); Lymphocytes Absolute Auto 1.67 K/mm3 (0.9-3.2); Lymphocytes Percent Auto 17.5 % (18.3-44.2); Mean Corpuscular HGB Conc 32.7 g/dl (32-36); Mean Corpuscular Hemoglobin 29.9 pg (26-34); Mean Corpuscular Volume 91.4 fl (80-100); Mean Platelet Volume 10.4 fl (7.4-10.4); Monocytes Absolute Auto 0.5 K/mm3 (0.1-0.6); Monocytes Percent Auto 5.3 % (2.6-8.5); Neutrophils Absolute Auto 7.2 K/mm3 (1.3-6.7); Platelet Count Result 252 k/mm3 (150-375); Red Blood Count 3.38 M/mm3 (4.2-5.4); Red Cell Distribution Width 12.5 % (11.5-14.5); White Blood Count 9.5 K/mm3 (4.5-10.0)
[2022-08-18 12:10] LABS: Alanine Aminotransferase 23 U/L (6-35); Albumin Level 3.7 g/dL (3.5-5.1); Alkaline Phosphatase 45 U/L (38-126); Anion Gap 7 mmol/L (8-16); Aspartate Amino Transferase 22 U/L (14-36); Bilirubin,Total 0.2 mg/dL (0.2-1.3); Blood Urea Nitrogen 29 mg/dL (7-17); Calcium 8.7 mg/dL (8.4-10.2); Carbon Dioxide 26 mmol/L (22-30); Chloride 104 mmol/L (98-107); Estimated CRCL calculation 81 ml/min; Estimated Glomerular Filt Rate > 60; Glucose 104 mg/dL (65-110); Sodium 137 mmol/L (137-145)
[2022-08-18] MEDS: SODIUM CHLORIDE 0.9% IV 1,000 ML 999 ML IV CONT ×2 (12:39→16:53)
[2022-08-18 12:40] LABS: Appearance Urine Cloudy (Clear); Bacteria Urine None Seen /hpf; Bilirubin Urine Negative (Negative); Blood Urine Negative (Negative); Color Urine Yellow (Yellow); Glucose Urine UA Negative (Negative); Ketones Urine Negative (Negative); Leukocyte Esterase Ur 1+ LEU/UL (Negative); Mucus Urine Present /lpf; Nitrate Urine Negative (Negative); Non Pathogenic Casts 0-2; Protein Urine Trace mg/dL (Negative); Specific Grav Ur 1.028 (1.001-1.035); Squamous Epithelial Cell Urine Few /hpf (Few); Urobilinogen Urine 0.2 mg/dL (<2.0); WBC Urine 0-5 /hpf; pH Urine 5.5 (5.0-9.0)
[2022-08-18 13:01] LABS: Add Urine Microscopic? YES
--- NOTE | 2022-08-18 17:04 | ED.GENADULT ---
HPI - General Adult General Chief complaint: Dizziness Stated complaint: dizziness Time Seen by Provider: 08/18/22 11:44 History of Present Illness HPI narrative: Patient is a 61-year-old female who presents ER with dizziness. 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 Recently mated here for concerns for hematemesis. Scope showed no source of bleeding and had a hiatal hernia. Patient was discharged with supportive medication. No chest pain or chest pressure. No loss of consciousness. No focal weakness or numbness in arm or leg. No alleviating factors. No history of vertigo. No spinning dizziness. Related Data Home Medications Medication Instructions Recorded Confirmed multivitamin 1 tablet PO DAILY 01/10/22 08/16/22 acetaminophen 500 mg capsule 500 mg PO Q6H PRN Pain 02/15/22 08/16/22 ferrous sulfate 220 mg (44 mg See Rx Instructions .Route .COMPLEX 08/16/22 08/16/22 iron)/5 mL oral elixir Allergies Allergy/AdvReac Type Severity Reaction Status Date / Time No Known Allergies Allergy Verified 08/18/22 11:04 Review of Systems Review of Systems: All systems reviewed & are unremarkable except as noted in HPI and below Constitutional: Constitutional: Denies chills, Reports fatigue and Denies fever(s) ENT: Denies nasal congestion and Denies sore throat Cardiovascular: Cardiovascular: Denies chest pain, Denies rapid heart rate and Denies radiating jaw, neck or arm pain Respiratory: Respiratory: Denies cough and Denies dyspnea Gastrointestinal: Gastrointestinal: Denies abdominal pain, Denies diarrhea, Reports nausea and Denies vomiting Neurologic: Reports dizziness, Denies syncope and Denies headache(s) [facility] Past Medical History Medical History (Updated 08/18/22 @ 17:47 by Morgan Johns MD) Anxiety Gastritis Headache, migraine Neurofibromatosis Pulmonary nodule Surgical History Surgical History Hx of section Family History Family History Father Cerebrovascular accident Social History Social History Smoking packs per day: 0.5 Smoking cigarettes per day: 10.0 Years smoked: 2 Smoking pack-years: 1.00 Smoking status: Former smoker Tobacco type: cigarettes Smoking end date: 02/05/86 Alcohol intake: never Substance use: never Substance use type: does not use Lack of Transportation: No Lack of Food: Never True Current Housing: I Have Housing Concerned About Future Housing: No Difficulty Paying Gas/Electric Bills: No Difficulty Paying for Meds: No Currently Unemployed: No Education: High School Diploma/GED Difficulty w/ Childcare or Family Care: No Spiritual care concerns: No Exam Narrative: GENERAL: Well-appearing, well-nourished, and in no acute distress. HEAD: Normocephalic, atraumatic. EYES: PERRL and EOMI. ENT: Mucous membranes moist. CHEST: Clear to auscultation. No respiratory distress. HEART: Regular rate and rhythm. Normal peripheral pulses. ABDOMEN: Soft, nontender, nondistended. EXTREMITIES: Normal range of motion. No edema. SKIN: Warm, dry, no rash. Numerous subcutaneous neurofibromas. NEURO: Alert and oriented x3. PSYCH: Normal mood and affect. Course Course Emergency Course: Patient resting comfortably. Received 2 L of IV fluid. Labs compared to previous labs and unremarkable. Patient felt appropriate for discharge. Vital Signs Vital signs: Vital Signs Temperature 97.8 F 08/18/22 11:06 Pulse Rate 89 08/18/22 11:06 Respiratory Rate 18 08/18/22 11:06 Blood Pressure 130/88 08/18/22 11:06 Pulse Oximetry 100 08/18/22 11:06 Oxygen Delivery Room Air 08/18/22 11:06 Temperature 97.6 F 08/18/22 15:53 Pulse Rate 107 H 08/18/22 16:42 Respiratory Rate 16 08/18/22 15
== END 2022-08-18 18:09 | disposition home or self-care (01) ==
PROVIDERS: Emergency Provider Emergency Medicine; PCP Family Medicine
DX: E86.0 Dehydration (principal); Q85.00 Neurofibromatosis, unspecified; Z87.891 Personal history of nicotine dependence
CPT/HCPCS: 36415; 80053; 81001; 85025; 93005; 96360; 96361; 99283; J7030

== ENCOUNTER 2022-09-09 09:25 | Outpatient (CLI) | payer BC, SELFPAY ==
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
== END 2022-09-09 09:26 | disposition home or self-care (01) ==
PROVIDERS: PCP Family Medicine; Visit Provider Family Medicine
DX: M54.41 Lumbago with sciatica, right side (principal); M47.816 Spondylosis without myelopathy or radiculopathy, lumbar region
CPT/HCPCS: 72148

== ENCOUNTER 2022-09-21 08:55 | Outpatient (CLI) | payer BC, SELFPAY ==
[2022-09-21 11:34] LABS: Basophils Absolute Auto 0.1 K/mm3 (0.0-0.1); Eosinophils Absolute Auto 0.1 K/mm3 (0-0.3); Eosinophils Percent Auto 1.6 % (0-4.4); Hematocrit 39.5 % (37.0-47.0); Hemoglobin 11.4 g/dL (12.0-15.0); Immature Granulocyte Absolute 0.02 K/mm3 (0.00-0.031); Immature Granulocyte Percent A 0.4 % (0-0.5); Lymphocytes Absolute Auto 1.41 K/mm3 (0.9-3.2); Lymphocytes Percent Auto 28.1 % (18.3-44.2); Mean Corpuscular HGB Conc 28.9 g/dl (32-36); Mean Corpuscular Hemoglobin 27.1 pg (26-34); Mean Corpuscular Volume 93.8 fl (80-100); Mean Platelet Volume 11.2 fl (7.4-10.4); Monocytes Absolute Auto 0.6 K/mm3 (0.1-0.6); Monocytes Percent Auto 11.2 % (2.6-8.5); Neutrophils Absolute Auto 2.9 K/mm3 (1.3-6.7); Neutrophils Percent Auto 57.7 % (45.5-73.1); Platelet Count Result 274 k/mm3 (150-375); Red Blood Count 4.21 M/mm3 (4.2-5.4); Red Cell Distribution Width 14.2 % (11.5-14.5)
[2022-09-21 12:11] LABS: Platelet Clumps Present; Platelet Estimate Adequate (Adequate); Schistocytes None Seen (NORMAL)
== END 2022-09-21 08:56 | disposition home or self-care (01) ==
PROVIDERS: PCP Family Medicine; Visit Provider Family Medicine
DX: D64.9 Anemia, unspecified (principal)
CPT/HCPCS: 36415; 85025

== ENCOUNTER 2023-03-24 07:54 | Outpatient (CLI) | payer BC, SELFPAY ==
--- NOTE | ~2023-03-24 | CT_ITS ---
CT Scan of the Chest without Contrast: Clinical Indication: Solitary pulmonary nodule Technique: Contiguous sections were acquired throughout the chest without intravenous contrast. Dose reduction technique was used on this scan by utilizing automated exposure control and iterative recon struction technique. The dose-length product (DLP) was 64.99 mGy-cm. COMPARISON: 01/09/2022 Findings: There is no evidence of any significant mediastinal, hilar or axillary lymphadenopathy. Calcified sub carinal lymph nodes present. The mediastinal soft tissues otherwise appear normal. There is no evidence of pleural or pericardial effusion. There is 4 mm nodule at the left lung base, slightly more conspicuous as compared to prior exam. Ther e is a smoothly marginated pleural-based nodule the right upper lobe region laterally, similar to chrissie or exam. Images through the upper abdomen reveal small calcified gallstone. Impression: Smoothly marginated pleural-based nodule/density at the lateral right upper lobe region, similar to m ildly increased from prior exam (axial image 62). 4 mm left basilar pulmonary nodule, slightly more conspicuous. Reviewed, dictated and finalized at location M. TS INTERN Impression: Smoothly marginated pleural-based nodule/density at the lateral right upper lob e region, similar to mildly increased from prior exam (axial image 62). 4 mm left basilar pulmonary nodule, slightly more conspicuous.
== END 2023-03-24 07:55 | disposition home or self-care (01) ==
PROVIDERS: PCP Family Medicine; Visit Provider Family Medicine
DX: R91.1 Solitary pulmonary nodule (principal)
CPT/HCPCS: 71250

== ENCOUNTER 2023-08-11 07:16 | Outpatient (CLI) | payer BC, SELFPAY ==
[2023-08-11 08:10] LABS: Alanine Aminotransferase 50 U/L (6-35); Albumin Level 4.3 g/dL (3.5-5.1); Alkaline Phosphatase 81 U/L (38-126); Anion Gap 5 mmol/L (4-12); Aspartate Amino Transferase 47 U/L (14-36); Bilirubin,Total 0.6 mg/dL (0.2-1.3); Blood Urea Nitrogen 22 mg/dL (7-17); Calcium 9.3 mg/dL (8.4-10.2); Carbon Dioxide 29 mmol/L (22-30); Chloride 106 mmol/L (98-107); Cholesterol 217 mg/dL (0-200); Estimated Glomerular Filt Rate > 60; Glucose 96 mg/dL (65-110); HDL Direct 61 mg/dL; Potassium 4.4 mmol/L (3.4-5.0); Sodium 140 mmol/L (137-145); Triglycerides 71 mg/dL (<150)
[2023-08-11 08:14] LABS: Hemoglobin A1C 5.2 % (<5.7)
[2023-08-11 08:15] LABS: Basophils Percent Auto 0.6 % (0.2-1.2); Eosinophils Absolute Auto 0.2 K/mm3 (0-0.3); Eosinophils Percent Auto 2.8 % (0-4.4); Hematocrit 44.6 % (37.0-47.0); Hemoglobin 14.8 g/dL (12.0-15.0); Immature Granulocyte Absolute 0.01 K/mm3 (0.00-0.031); Immature Granulocyte Percent A 0.2 % (0-0.5); Lymphocytes Absolute Auto 1.93 K/mm3 (0.9-3.2); Lymphocytes Percent Auto 30.4 % (18.3-44.2); Mean Corpuscular HGB Conc 33.2 g/dl (32-36); Mean Corpuscular Hemoglobin 30.1 pg (26-34); Mean Corpuscular Volume 90.8 fl (80-100); Monocytes Absolute Auto 0.7 K/mm3 (0.1-0.6); Monocytes Percent Auto 10.7 % (2.6-8.5); Neutrophils Absolute Auto 3.5 K/mm3 (1.3-6.7); Neutrophils Percent Auto 55.3 % (45.5-73.1); Platelet Count Result 215 k/mm3 (150-375); Red Blood Count 4.91 M/mm3 (4.2-5.4); Red Cell Distribution Width 12.6 % (11.5-14.5); White Blood Count 6.4 K/mm3 (4.5-10.0)
[2023-08-11 08:17] LABS: LDL Cholesterol Direct 126 mg/dL
== END 2023-08-11 07:17 | disposition home or self-care (01) ==
PROVIDERS: PCP Family Medicine; Visit Provider Family Medicine
DX: E78.5 Hyperlipidemia, unspecified (principal); D64.9 Anemia, unspecified; E55.9 Vitamin D deficiency, unspecified; R53.83 Other fatigue; R73.9 Hyperglycemia, unspecified
CPT/HCPCS: 36415; 80053; 80061; 82306; 83036; 84439; 84443; 85025

== ENCOUNTER 2023-10-31 15:52 | Outpatient (CLI) | payer BC, SELFPAY ==
[2023-10-31 16:47] LABS: Add Urine Microscopic? YES; Appearance Urine Clear (Clear); Bacteria Urine None Seen /hpf; Bilirubin Urine Negative (Negative); Blood Urine Negative (Negative); Color Urine Yellow (Yellow); Glucose Urine UA Negative (Negative); Ketones Urine Negative (Negative); Leukocyte Esterase Ur Trace LEU/UL (Negative); Nitrate Urine Negative (Negative); Non Pathogenic Casts 0-2; Protein Urine Negative (Negative); RBC Urine 0-2 /hpf (0-2); Specific Grav Ur 1.024 (1.001-1.035); Squamous Epithelial Cell Urine None Seen /hpf (Few); Urobilinogen Urine 0.2 mg/dL (<2.0); pH Urine 5.5 (5.0-9.0)
[2023-10-31 16:51] LABS: Immunoglobulin A 268 mg/dL (70-400); Immunoglobulin G 1303 mg/dL (700-1600); Rheumatoid Factor < 12.0 IU/ML (<12)
[2023-10-31 17:03] LABS: Erythrocyte Sedimentation Rate 8 mm/hr (0-20)
[2023-10-31 17:05] LABS: Basophils Absolute Auto 0.1 K/mm3 (0.0-0.1); Basophils Percent Auto 0.9 % (0.2-1.2); Eosinophils Absolute Auto 0.3 K/mm3 (0-0.3); Eosinophils Percent Auto 4.5 % (0-4.4); Hematocrit 43.9 % (37.0-47.0); Hemoglobin 14.8 g/dL (12.0-15.0); Immature Granulocyte Absolute 0.01 K/mm3 (0.00-0.031); Immature Granulocyte Percent A 0.1 % (0-0.5); Lymphocytes Absolute Auto 2.02 K/mm3 (0.9-3.2); Lymphocytes Percent Auto 29.4 % (18.3-44.2); Mean Corpuscular HGB Conc 33.7 g/dl (32-36); Mean Corpuscular Hemoglobin 29.8 pg (26-34); Mean Corpuscular Volume 88.3 fl (80-100); Mean Platelet Volume 11.1 fl (7.4-10.4); Monocytes Absolute Auto 0.7 K/mm3 (0.1-0.6); Monocytes Percent Auto 10.2 % (2.6-8.5); Neutrophils Absolute Auto 3.8 K/mm3 (1.3-6.7); Neutrophils Percent Auto 54.9 % (45.5-73.1); Platelet Count Result 217 k/mm3 (150-375); Red Blood Count 4.97 M/mm3 (4.2-5.4); Red Cell Distribution Width 12.2 % (11.5-14.5); White Blood Count 6.9 K/mm3 (4.5-10.0)
[2023-10-31 17:12] LABS: Alanine Aminotransferase 23 U/L (6-35); Albumin Level 4.4 g/dL (3.5-5.1); Alkaline Phosphatase 72 U/L (38-126); Anion Gap 8 mmol/L (4-12); Aspartate Amino Transferase 26 U/L (14-36); Bilirubin,Total 0.4 mg/dL (0.2-1.3); Blood Urea Nitrogen 19 mg/dL (7-17); CRP < 0.5 mg/dL (<1.0); Calcium 9.3 mg/dL (8.4-10.2); Carbon Dioxide 27 mmol/L (22-30); Chloride 104 mmol/L (98-107); Estimated Glomerular Filt Rate > 60; Glucose 115 mg/dL (65-110); Phosphorus 3.5 mg/dL (2.5-4.5); Potassium 3.6 mmol/L (3.4-5.0); Sodium 139 mmol/L (137-145)
[2023-10-31 18:32] LABS: Hepatitis B Surface Antigen Negative (Negative)
[2023-10-31 18:38] LABS: HAV RESULT Negative (Negative); Hepatitis B Core IgM Result Negative (Negative)
[2023-10-31 18:49] LABS: Hepatitis B Surface Anti Res Negative; Hepatitis C Virus Antibody Negative (Negative)
[2023-11-02 12:28] LABS: NIL 0.02 IU/mL; Quantiferon TB Plus, 1T NEGATIVE (NEGATIVE); TB1-NIL 0.14 IU/mL; TB2-NIL 0.12 IU/mL
[2023-11-05 15:44] LABS: Cyclic Citrullinated Peptide 19 UNITS
== END 2023-10-31 15:53 | disposition home or self-care (01) ==
LOC: ANHLAB 15:55
PROVIDERS: PCP Family Medicine; Visit Provider Internal Medicine
DX: M19.90 Unspecified osteoarthritis, unspecified site (principal)
CPT/HCPCS: 36415; 80053; 80074; 81001; 82784; 84100; 84443; 84550; 85025; 85652; 86038; 86039; 86140; 86200; 86430; 86480; 86706

== ENCOUNTER 2023-11-23 14:08 | Outpatient (CLI) | payer BC, SELFPAY ==
--- NOTE | ~2023-11-23 | US_ITS ---
US thyroid INDICATION: Enlarged thyroid gland TECHNIQUE: Real-time sonographic images of the thyroid gland were obtained. COMPARISON: No prior studies for comparison. FINDINGS: The right thyroid lobe measures 5.5 x 2.2 x 2 cm. The left thyroid lobe measures 5 x 2.2 x 1.8 cm. Thyroid gland is diffusely enlarged, heterogeneous with multiple ill-defined masses, consist ent with multinodular goiter. Normal vascular flow is present. IMPRESSION: 1. Enlarged heterogeneous thyroid gland with multiple ill-defined masses, consistent with multinodul ar goiter. Reviewed, dictated and finalized at location B. IMPRESSION: 1. Enlarged heterogeneous thyroid gland with multiple ill-defined masses, cons istent with multinodular goiter.
== END 2023-11-23 14:09 | disposition home or self-care (01) ==
PROVIDERS: PCP Family Medicine; Visit Provider Family Medicine
DX: E04.9 Nontoxic goiter, unspecified (principal)
CPT/HCPCS: 76536

== ENCOUNTER 2024-03-14 09:34 | Outpatient (CLI) | payer BC, SELFPAY ==
[2024-03-14 10:04] LABS: Hematocrit 43.9 % (37.0-47.0); Hemoglobin 14.5 g/dL (12.0-15.0); Mean Corpuscular Hemoglobin 29.5 pg (26-34); Mean Corpuscular Volume 89.4 fl (80-100); Mean Platelet Volume 9.9 fl (7.4-10.4); Platelet Count Result 293 k/mm3 (150-375); Red Blood Count 4.91 M/mm3 (4.2-5.4); Red Cell Distribution Width 12.5 % (11.5-14.5); White Blood Count 6.1 K/mm3 (4.5-10.0)
--- OUTSIDE RECORDS SUMMARY | 2024-03-14 10:11 | XMS_ITS | Referral Summary ---
Author Organization [facility] Address [address] [place] [address] Care Team Providers Care Side Guider Name Role Phone Renata Walls DO Primary Care Provider + Catherine Srivastava Unavailable [phone] Allergies No known active allergies Medications No known medications Active Problems Problem Noted Date Diagnosed Date Anemia 09/26/2022 Assessment & Plan (09/27/2022 3:49 PM CDT): Patient with profound anemia on presentation during recent hospitalization (6.4 g/dL). Patient had + FOBT during hospitalization and reported hematemesis prior to admission. Patient underwent EGD at time of admission without evidence of overt GI bleeding. Patient had recent EGD and colonoscopy at outside hospital as below. With positive FOBT during recent hospitalization, there is concern for continued occult GI blood loss contributing to ongoing anemia. Capsule endoscopy is recommended and scheduled for evaluation of the small bowel. The procedure risks including, but not limited to perforation infection bleeding and anesthetic complications were discussed and the patient verbalized understanding and agreed to proceed. Continue oral iron (66 mg of elemental iron). Other constipation 09/26/2022 Assessment & Plan (09/27/2022 3:51 PM CDT): Patient reports she is been taking daily probiotic. She reports persistent constipation. She has hard stools and sometimes goes days without bowel movements. Recent colonoscopy as below. Would recommend MiraLax daily for constipation. Fecal occult blood test positive 09/26/2022 Epigastric abdominal pain 09/26/2022 Assessment & Plan (09/27/2022 3:50 PM CDT): Persistent. Patient with multiple recent upper endoscopies revealing gastritis. Patient is unable to take pills p.o.. Abdominal pain had started to improve with IV Protonix during hospitalization. Upon conversation with patient's pharmacy, no PPI elix is available. However, famotidine oral suspension is on formulary. Recommend famotidine 40 mg daily. Upper GI bleeding 08/20/2022 Sinus pause 02/08/2022 Social History Tobacco Use Types Packs/Day Years Used Date Smoking Tobacco: Never Smokeless Tobacco: Never Social Connection and Isolat ion Panel [NHANES] Answer Date Recorded In a typical week, how many times do you talk on the phone with family, friends, or neighbors? More than three times a week 08/22/2022 How often do you get togethe r with friends or relatives? More than three times a week 08/22/2022 Attends [employer] Services Not on file 08/22 Active Member of Clubs or Organizations Not on f ile 08/22/2022 Attends Club or Organization Meetings Not on avril e 08/22/2022 Are you , , di vorced, , never , or living with a partner? 08/22/2022 AUDIT-C Answer Date Recorded Q1: How often do you have a drink containing alcohol? Never 10/27/2022 Q2: How many drinks containi ng alcohol do you have on a typical day when you are drinking? Patient does not drink Q3: How often do you have si x or more drinks on one occasion? Never 10/27/2022 Overall Financial Resource Strain (CARDIA) Answe r Date Recorded How hard is it for you to pa y for the very basics like food, housing, medical care, and heating? Not hard at all 08/22/2022 PHQ-2 Answer Date Recorded PHQ-2 Total Score (If total score is 3 or more points, staff should administer the PHQ-9) 0 09/26/2022 Hunger Vital Sign Answer Date Recorded Within the past 12 months, y ou worried that your food would run out before you got the money to buy more. Never true 08/23/19 23 Within the past 12 months, t he food you bought just didn't last and you didn't have money to get more. Never true 08/22/2022 PRAPARE - Transportation Answer Date Re corded In the past 12 months, has l ack of transportation kept you from medical appointments or from getting medications? No 08/05 In the past 12 months, has l ack of transportation kept you from meetings, work, or from getting things needed for daily living? No 08/22/2022 Housing Stability Vital Sign Answer Tulio e Recorded In the last 12 months, was t here a time when you were not able to pay the mortgage or rent on time? No 08/22/2022 Number of Places Lived in the Last Year Not on f ile 08/22/2022 In the last 12 months, was t here a time when you did not have a steady place to sleep or slept in a long term (including now)? 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 Gender Identity Not on file Sexual Orientation Not on file Last Filed Vital Signs Vital Sign Reading Time Taken Comments Blood Pressure 102/63 10/27/2022 8:20 AM CDT Pulse 63 10/27/2022 8:25 AM CDT Temperature 36.8 C (98.2 F) 08/25/2022 11:50 AM CDT Respiratory Rate 22 10/27/2022 8:25 AM CDT Oxygen Saturation 100% 10/27/2022 8:25 AM CDT Inhaled Oxygen Concentration - - Weight 68 kg (150 lb) 10/27/2022 7:11 AM CDT Height 160 cm (5' 3 ) 10/27/2022 7:11 AM CDT Body Mass Index 26.57 10/27/2022 7:11 AM CDT Plan of Treatment Not on file Insurance [employer] OOS BLUE ACCESS OOS BLUE ACCESS OOS Advance Directives For more information, please contact: [phone] * Full Code (Latest Code Status on File) Date Activated Date Inactivated Comments 08/21/2022 4:43 AM 08/25/2022 5:59 PM Care Teams Side Guider Relationship Specialty Start Date End Date Renata Walls DO PCP - General Family Medicine 08/22/22 Catherine Srivastava PA Gastroenterology 08/25/22
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
[2024-03-14 10:20] LABS: Alanine Aminotransferase 19 U/L (6-35); Albumin Level 4.2 g/dL (3.5-5.1); Alkaline Phosphatase 78 U/L (38-126); Anion Gap 5 mmol/L (4-12); Aspartate Amino Transferase 22 U/L (14-36); Bilirubin,Total 0.7 mg/dL (0.2-1.3); Blood Urea Nitrogen 12 mg/dL (7-17); CRP < 0.5 mg/dL (<1.0); Calcium 9.5 mg/dL (8.4-10.2); Carbon Dioxide 28 mmol/L (22-30); Chloride 104 mmol/L (98-107); Estimated Glomerular Filt Rate > 60; Glucose 86 mg/dL (65-110); Phosphorus 3.4 mg/dL (2.5-4.5); Potassium 4.1 mmol/L (3.4-5.0); Sodium 137 mmol/L (137-145); Uric Acid 4.1 mg/dL (2.5-7.5)
[2024-03-14 10:27] LABS: Add Urine Microscopic? YES; Appearance Urine Turbid (Clear); Bacteria Urine None Seen /hpf; Bilirubin Urine Negative (Negative); Blood Urine Negative (Negative); Color Urine Dark Yellow (Yellow); Glucose Urine UA Negative (Negative); Ketones Urine Negative (Negative); Leukocyte Esterase Ur Negative LEU/UL (Negative); Nitrate Urine Negative (Negative); Non Pathogenic Casts 0-2; Protein Urine Negative (Negative); RBC Urine 0-2 /hpf (0-2); Specific Grav Ur 1.018 (1.001-1.035); Squamous Epithelial Cell Urine Moderate /hpf (Few); WBC Urine 0-5 /hpf (0-3)
[2024-03-14 10:45] LABS: Thyroid Stimulating Hormone 0.735 uIU/mL (0.465-4.680)
[2024-03-14 11:00] LABS: Hepatitis B Surface Antigen Negative (Negative)
[2024-03-14 11:05] LABS: HAV RESULT Negative (Negative); Hepatitis B Core IgM Result Negative (Negative)
[2024-03-14 11:17] LABS: Hepatitis B Surface Anti Res Negative; Hepatitis C Virus Antibody Negative (Negative)
[2024-03-14 11:56] LABS: Erythrocyte Sedimentation Rate 7 mm/hr (0-20)
[2024-03-17 14:03] LABS: Cyclic Citrullinated Peptide 17 UNITS
[2024-03-18 13:03] LABS: NIL 0.02 IU/mL; Quantiferon TB Plus, 1T NEGATIVE (NEGATIVE); TB1-NIL 0.05 IU/mL
== END 2024-03-14 09:35 | disposition home or self-care (01) ==
LOC: ANHLAB 09:36
PROVIDERS: PCP Family Medicine; Visit Provider Internal Medicine
DX: M19.90 Unspecified osteoarthritis, unspecified site (principal)
CPT/HCPCS: 36415; 80053; 80074; 81001; 84100; 84443; 84550; 85027; 85652; 86038; 86039; 86140; 86200; 86480; 86706

== ENCOUNTER 2024-04-05 07:01 | Outpatient (CLI) | payer BC, SELFPAY ==
[2024-04-05 08:49] LABS: Alanine Aminotransferase 24 U/L (6-35); Albumin Level 4.1 g/dL (3.5-5.1); Alkaline Phosphatase 79 U/L (38-126); Anion Gap 9 mmol/L (4-12); Aspartate Amino Transferase 26 U/L (14-36); Bilirubin,Total 0.7 mg/dL (0.2-1.3); Blood Urea Nitrogen 16 mg/dL (7-17); Calcium 9.5 mg/dL (8.4-10.2); Carbon Dioxide 27 mmol/L (22-30); Chloride 104 mmol/L (98-107); Estimated Glomerular Filt Rate > 60; Glucose 84 mg/dL (65-110); Phosphorus 3.6 mg/dL (2.5-4.5); Potassium 4.2 mmol/L (3.4-5.0); Sodium 140 mmol/L (137-145)
== END 2024-04-05 07:02 | disposition home or self-care (01) ==
PROVIDERS: PCP Family Medicine; Visit Provider Internal Medicine
DX: R91.1 Solitary pulmonary nodule (principal)
CPT/HCPCS: 36415; 80053; 84100

== ENCOUNTER 2024-07-29 14:28 | Outpatient (CLI) | payer BC, SELFPAY ==
[2024-07-29 15:07] LABS: Alanine Aminotransferase 55 U/L (6-35); Aspartate Amino Transferase 57 U/L (14-36)
== END 2024-07-29 14:29 | disposition home or self-care (01) ==
LOC: ANHLAB 14:30
PROVIDERS: PCP Family Medicine; Visit Provider Podiatrist Foot & Ankle Surgery
DX: B35.1 Tinea unguium (principal)
CPT/HCPCS: 36415; 84450; 84460

== ENCOUNTER 2024-11-21 09:48 | Outpatient (CLI) | payer BC, SELFPAY ==
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
[2024-11-21 10:42] LABS: Hematocrit 44.8 % (37.0-47.0); Hemoglobin 14.6 g/dL (12.0-15.0); Mean Corpuscular HGB Conc 32.6 g/dl (32-36); Mean Corpuscular Hemoglobin 28.7 pg (26-34); Mean Corpuscular Volume 88.2 fl (80-100); Platelet Count Result 295 k/mm3 (150-375); Red Blood Count 5.08 M/mm3 (4.2-5.4); White Blood Count 6.3 K/mm3 (4.5-10.0)
[2024-11-21 11:17] LABS: Free T4 Free Thyroxine 1.18 ng/dL (0.78-2.19)
[2024-11-21 12:07] LABS: Alanine Aminotransferase 25 U/L (6-35); Albumin Level 4.2 g/dL (3.5-5.1); Alkaline Phosphatase 83 U/L (38-126); Anion Gap 6 mmol/L (4-12); Aspartate Amino Transferase 27 U/L (14-36); Bilirubin,Total 0.5 mg/dL (0.2-1.3); Blood Urea Nitrogen 18 mg/dL (7-17); Calcium 9.4 mg/dL (8.4-10.2); Carbon Dioxide 27 mmol/L (22-30); Chloride 105 mmol/L (98-107); Cholesterol 223 mg/dL (0-200); Estimated Glomerular Filt Rate > 60; Glucose 97 mg/dL (65-110); HDL Direct 55 mg/dL; Potassium 4.3 mmol/L (3.4-5.0); Sodium 138 mmol/L (137-145); Total Protein 7.7 g/dL (6.3-8.2); Triglycerides 83 mg/dL (<150)
[2024-11-21 12:37] LABS: Thyroid Stimulating Hormone 2.600 uIU/mL (0.465-4.680)
== END 2024-11-21 09:49 | disposition home or self-care (01) ==
PROVIDERS: PCP Family Medicine; Visit Provider Internal Medicine
DX: Z00.00 Encounter for general adult medical examination without abnormal findings (principal); Z13.220 Encounter for screening for lipoid disorders; M19.90 Unspecified osteoarthritis, unspecified site; E04.9 Nontoxic goiter, unspecified; D64.9 Anemia, unspecified; R53.83 Other fatigue; E55.9 Vitamin D deficiency, unspecified
CPT/HCPCS: 36415; 80053; 80061; 82306; 84100; 84439; 84443; 85027